=== PATIENT | male | born 1965 | race American Indian/Alaskan Native ===

== ENCOUNTER 2020-05-30 10:56 | Emergency (ER) | payer SELFPAY ==
--- NOTE | 2020-05-30 11:56 | Emergency Department Report ---
ED Abdominal Pain HPI - General Chief Complaint: Abdominal Pain Stated Complaint: VOMINTING Time Seen by Provider: 05/30/20 11:30 Source: patient Mode of arrival: Ambulatory Limitations: No Limitations - History of Present Illness Initial Comments: pt is a 55 yo male who presents to the ED with c/o N/V that began 2 weeks ago. he states he is having approximately 5-6 episodes a day. he states he is having difficulty eating. he states he will eat a few bites and then begin having vomiting. he states he has lost 30 pounds in approximately 2 weeks. he has associated upper abd discomfort and states his urine has appeared darker/hematuria. he states he has been having normal BMs. pt denies any diarrhea, hematochezia, hematoemesis, melena, fever, chills. no pmhx. no allergies to meds. no abdominal surgical hx. - Related Data Previous Rx's Medication Instructions Recorded Last Taken Type Famotidine [Pepcid] 40 mg PO QHS #30 tablet 05/30/20 Unknown Rx Ondansetron [Zofran Odt] 4 mg PO Q8HR PRN #12 tab.rapdis 05/30/20 Unknown Rx Sucralfate [Carafate] 1 gm PO ACHS 7 Days #21 tablet 05/30/20 Unknown Rx ED Review of Systems ROS: Stated complaint: VOMINTING Other details as noted in HPI Comment: All other systems reviewed and negative ED Past Medical Hx - Past Medical History Previous Medical History?: No - Surgical History Past Surgical History?: No - Social History Smoking Status: Never Smoker Substance Use Type: None - Medications Home Medications: Home Medications Medication Instructions Recorded Confirmed Last Taken Type Famotidine [Pepcid] 40 mg PO QHS #30 tablet 05/30/20 Unknown Rx Ondansetron [Zofran Odt] 4 mg PO Q8HR PRN #12 tab.rapdis 05/30/20 Unknown Rx Sucralfate [Carafate] 1 gm PO ACHS 7 Days #21 tablet 05/30/20 Unknown Rx ED Physical Exam - General Limitations: No Limitations General appearance: alert, in no apparent distress - Head Head exam: Present: atraumatic, normocephalic - Eye Eye exam: Present: normal appearance - ENT ENT exam: Present: mucous membranes moist - Respiratory Respiratory exam: Present: normal lung sounds bilaterally. Absent: respiratory distress, wheezes, rales, rhonchi, stridor, chest wall tenderness, accessory muscle use, decreased breath sounds, prolonged expiratory - Cardiovascular Cardiovascular Exam: Present: regular rate, normal rhythm, normal heart sounds. Absent: systolic murmur, diastolic murmur, rubs, gallop - GI/Abdominal GI/Abdominal exam: Present: soft, tenderness (mild generalized), normal bowel sounds. Absent: distended, guarding, rebound, rigid - Neurological Exam Neurological exam: Present: alert, oriented X3 - Psychiatric Psychiatric exam: Present: normal affect, normal mood - Skin Skin exam: Present: warm, dry, intact ED Course Vital Signs 05/30/20 05/30/20 11:58 15:03 Temperature 98.8 F 98 F Pulse Rate 78 87 Respiratory 18 18 Rate Blood Pressure 109/68 130/78 [Right] O2 Sat by Pulse 100 99 Oximetry ED Medical Decision Making - Lab Data Result diagrams: 05/30/20 11:53 05/30/20 11:52 Lab Results 05/30/20 05/30/20 05/30/20 Range/Units 11:42 11:52 11:53 WBC 6.2 (4.5-11.0) K/mm3 RBC 5.73 H (3.65-5.03) M/mm3 Hgb 16.8 H (11.8-15.2) gm/dl Hct 49.8 H (35.5-45.6) % MCV 87 (84-94) fl MCH 29 (28-32) pg MCHC 34 (32-34) % RDW 13.7 (13.2-15.2) % Plt Count 153 (140-440) K/mm3 Lymph % (Auto) 21.5 (13.4-35.0) % [place] % (Auto) 10.5 H (0.0-7.3) % Eos % (Auto) 0.6 (0.0-4.3) % Baso % (Auto) 0.2 (0.0-1.8) % Lymph # (Auto) 1.3 (1.2-5.4) K/mm3 [place] # (Auto) 0.7 (0.0-0.8) K/mm3 Eos # (Auto) 0.0 (0.0-0.4) K/mm3 Baso # (Auto) 0.0 (0.0-0.1) K/mm3 Seg Neutrophils % 67.2 (40.0-70.0) % Seg Neutrophils # 4.2 (1.8-7.7) K/mm3 Sodium 146 H (137-145) mmol/L Potassium 4.2 (3.6-5.0) mmol/L Chloride 104.8 (98-107) mmol/L Carbon Dioxide 34 H (22-30) mmol/L Anion Gap 11 mmol/L BUN 16 (9-20) mg/dL Creatinine 0.9 (0.8-1.3) mg/dL Estimated GFR > 60 ml/min BUN/Creatinine Ratio 18 % Glucose 95 (75-100) mg/dL Calcium 9.5 (8.4-10.2) mg/dL Total Bilirubin 0.40 (0.1-1.2) mg/dL AST 24 (5-40) units/L ALT 27 (7-56) units/L Alkaline Phosphatase 58 (35-129) units/L Total Protein 6.9 (6.3-8.2) g/dL Albumin 4.5 (3.9-5) g/dL Albumin/Globulin Ratio 1.9 % Lipase 19 (13-60) units/L Urine Color [place] (Yellow) Urine Turbidity Slightly-cloudy (Clear) Urine pH 5.0 (5.0-7.0) Ur Specific [place] 1.046 H (1.003-1.030) Urine Protein 100 mg/dl (Negative) mg/dL Urine Glucose (UA) Neg (Negative) mg/dL Urine Ketones Tr (Negative) mg/dL Urine Blood Neg (Negative) Urine Nitrite Neg (Negative) Urine Bilirubin Neg (Negative) Urine Urobilinogen 2.0 (<2.0) mg/dL Ur Leukocyte Esterase Neg (Negative) Urine WBC (Auto) 4.0 (0.0-6.0) /HPF Urine RBC (Auto) 41.0 (0.0-6.0) /HPF U Epithel Cells (Auto) 2.0 (0-13.0) /HPF Urine Mucus 3+ /HPF - Radiology Data Radiology results: report reviewed Ordering Physician: KATHLEEN STRANGE Date of Service: 05/30/20 Procedure(s): CT abdomen pelvis w con Accession Number(s): [id number] cc: KATHLEEN STRANGE CT abdomen pelvis w con INDICATION / CLINICAL INFORMATION: Abdominal pain with nausea and vomiting, weight loss. TECHNIQUE: Axial CT imaging of abdomen and pelvis was obtained with IV contrast. Coronal and sagittal reformatted imaging obtained and reviewed. All CT scans at this location are performed using CT dose reduction for ALARA by means of automated exposure control. COMPARISON: None available. FINDINGS: CT abdomen with IV contrast shows mild heterogeneity of the liver without discrete mass. Liver is of normal size. Spleen, pancreas, right kidney, and adrenal glands are unremarkable. There are 2 simple cysts within the left kidney both measuring approximately 2-3 cm in diameter. A moderate size hiatal hernia is present. Gallbladder is grossly unremarkable. No biliary dilatation. There is a midline supraumbilical abdominal wall hernia. The hernia contains only fat. CT pelvis with contrast does not demonstrate any mass, free fluid, or focal inflammatory change. There is ectasia of the common iliac arteries bilaterally as well as the internal and extrarenal iliac arteries bilaterally. Fluid-filled small bowel loops are present throughout the abdomen and pelvis which I suspect is related to enteritis. This will need to be correlated with clinical presentation and symptoms. Appendix is difficult to confidently identify but I believe it to be within normal limits. There is certainly no secondary evidence for appendicitis. Visualized lung bases are grossly clear. No acute significant osseous abnormality identified. IMPRESSION: 1. Fluid-filled small bowel loops with appearance most suggestive of enteritis. Please correlate with clinical symptoms and presentation. 2. Small to moderate-sized supraumbilical abdominal wall hernia containing only fat. 3. Mild heterogeneity of the liver without discrete mass. This finding is nonspecific. 4. Moderate size hiatal hernia. There is food present within the hiatal hernia. Signer Name: Hiral Frausto MD Signed: 05/30/2020 2:31 PM Workstation Name: [id number] Transcribed By: Dictated By: Hiral Frausto MD Electronically Authenticated By: Hiral Frausto MD Signed Date/Time: 05/30/20 1431 DD/ 142 TD/TT: - Medical Decision Making pt is a 55 yo male who presents to the ED with c/o N/V that began 2 weeks ago. he states he is having approximately 5-6 episodes a day. he states he is having difficulty eating. he states he will eat a few bites and then begin having vomiting. he states he has lost 30 pounds in approximately 2 weeks. he has associated upper abd discomfort and states his urine has appeared darker/hematuria. he states he has been having normal BMs. pt denies any diarrhea, hematochezia, hematoemesis, melena, fever, chills. no pmhx. no allergies to meds. no abdominal surgical hx. vitals are normal. On exam mild generalized abdominal tenderness palpation, no guarding, no rebound, no rigidity, normal bowel sounds, no peritoneal signs. Labs are stable. UA with red blood cells, otherwise stable. CT abdomen pelvis with IV contrast 1. Fluid- filled small bowel loops with appearance most suggestive of enteritis. Please correlate with clinical symptoms and presentation. 2. Small to moderate-sized supraumbilical abdominal wall hernia containing only fat. 3. Mild heterogeneity of the liver without discrete mass. This finding is nonspecific. 4. Moderate size hiatal hernia. There is food present within the hiatal hernia. Patient given medications on the emergency department and symptoms improved and he was able to tolerate p.o. intake without difficulty. Discussed all results with patient and answered questions. Discussed the importance of follow-up with patient. Patient given prescription for Pepcid, Carafate, Zofran. Advised patient please take medication as prescribed. increase your water intake. eat a bland liquid diet and slowly advance your diet as tolerated. follow up with a primary care doctor. follow up with a GI doctor. return to the emergency room for any new or worsening symptoms. Critical care attestation.: If time is entered above; I have spent that time in minutes in the direct care of this critically ill patient, excluding procedure time. ED Disposition Clinical Impression: Enteritis, Hernia Nausea & vomiting Qualifiers: Vomiting type: unspecified Vomiting Intractability: non-intractable Qualified Code(s): R11.2 - Nausea with vomiting, unspecified Abdominal pain Qualifiers: Abdominal location: upper abdomen, unspecified Qualified Code(s): R10.10 - Upper abdominal pain, unspecified Disposition: DC-01 TO HOME OR SELFCARE Is pt being admited?: No Does the pt Need Aspirin: No Condition: Stable Instructions: Viral Gastroenteritis, Adult, Hernia, Adult Additional Instructions: please take medication as prescribed. increase your water intake. eat a bland liquid diet and slowly advance your diet as tolerated. follow up with a primary care doctor. follow up with a GI doctor. return to the emergency room for any new or worsening symptoms. Prescriptions: Famotidine [Pepcid] 40 mg PO QHS #30 tablet Sucralfate [Carafate] 1 gm PO ACHS 7 Days #21 tablet Ondansetron [Zofran Odt] 4 mg PO Q8HR PRN #12 tab.rapdis PRN Reason: nausea/vomiting Referrals: [facility] [Provider Group] - 2-3 Days [facility] [Provider Group] - 2-3 Days DUGLAS BAEZA MD [Staff Physician] - 2-3 Days PRIMARY MD KIMBERLY [Primary Care Provider] - 2-3 Days Time of Disposition: 14:50 Print Language: [email or web address]
[2020-05-30] MEDS ORDERED: SODIUM CHLORIDE 0.9% 1000 ML 1,000 ML IV ONE (12:28)
[2020-05-30] MEDS ORDERED: MORPHINE 4 MG/1 ML INJ IV ONE (12:28)
[2020-05-30] MEDS ORDERED: ONDANSETRON 4 MG/2 ML INJ IV ONE (12:28)
[2020-05-30 12:35] LABS: Bilirubin,Urine NEG (Negative); Blood,Urine NEG (Negative); Color,Urine Amber (Yellow); Mucus,Urine 3+ /HPF
[2020-05-30 12:39] LABS: Basophils % (Auto) 0.2 % (0.0-1.8); Eosinophils % (Auto) 0.6 % (0.0-4.3); Hematocrit 49.8 % (35.5-45.6); Hemoglobin 16.8 gm/dl (11.8-15.2); Lymphocytes # (Auto) 1.3 K/mm3 (1.2-5.4); Lymphocytes % (Auto) 21.5 % (13.4-35.0); Mean Corpuscular HGB Conc 34 % (32-34); Mean Corpuscular Volume 87 fl (84-94); Monocytes # (Auto) 0.7 K/mm3 (0.0-0.8); Monocytes % (Auto) 10.5 % (0.0-7.3); Platelet Count 153 K/mm3 (140-440); Red Blood Count 5.73 M/mm3 (3.65-5.03); Red Cell Distribution Width 13.7 % (13.2-15.2)
[2020-05-30 13:01] LABS: Alanine Aminotransferase 27 units/L (7-56); Albumin 4.5 g/dL (3.9-5); BUN/Creatinine Ratio 18; Blood Urea Nitrogen 16 mg/dL (9-20); Calcium 9.5 mg/dL (8.4-10.2); Hemolysis Index 30
--- NOTE | 2020-05-30 14:35 | Cat Scan Report ---
CT abdomen pelvis w con INDICATION / CLINICAL INFORMATION: Abdominal pain with nausea and vomiting, weight loss. TECHNIQUE: Axial CT imaging of abdomen and pelvis was obtained with IV contrast. Coronal and sagittal reformatte d imaging obtained and reviewed. All CT scans at this location are performed using CT dose reduction for ALARA by means of automated exposure control. COMPARISON: None available. FINDINGS: CT abdomen with IV contrast shows mild heterogeneity of the liver without discrete mass. Liver is of normal size. Spleen, pancreas, right kidney, and adrenal glands are unremarkable. There are 2 simple cysts within the left kidney both measuring approximately 2-3 cm in diameter. A moderate size hiatal hernia is present. Gallbladder is grossly unremarkable. No biliary dilatation. There is a midline supraumbilical abdominal wall hernia. The hernia contains only fat. CT pelvis with contrast does not demonstrate any mass, free fluid, or focal inflammatory change. Ther e is ectasia of the common iliac arteries bilaterally as well as the internal and extrarenal iliac ar teries bilaterally. Fluid-filled small bowel loops are present throughout the abdomen and pelvis which I suspect is relat ed to enteritis. This will need to be correlated with clinical presentation and symptoms. Appendix is difficult to confidently identify but I believe it to be within normal limits. There is certainly no secondary evidence for appendicitis. Visualized lung bases are grossly clear. No acute significant osseous abnormality identified. IMPRESSION: 1. Fluid-filled small bowel loops with appearance most suggestive of enteritis. Please correlate with clinical symptoms and presentation. 2. Small to moderate-sized supraumbilical abdominal wall hernia containing only fat. 3. Mild heterogeneity of the liver without discrete mass. This finding is nonspecific. 4. Moderate size hiatal hernia. There is food present within the hiatal hernia. Signer Name: Hiral Frausto MD Signed: 05/30/2020 2:31 PM Workstation Name: [id number]
[2020-05-30 15:04] VITALS: BP 130/78
== END 2020-05-30 15:03 | disposition home or self-care (01) ==
LOC: ED 10:56
DX: K52.9 Noninfective gastroenteritis and colitis, unspecified (principal); K46.9 Unspecified abdominal hernia without obstruction or gangrene; R10.10 Upper abdominal pain, unspecified; R11.2 Nausea with vomiting, unspecified; Z79.899 Other long term (current) drug therapy
CPT/HCPCS: 36415; 74177; 80053; 81001; 83690; 85025; 96361; 96374; 96375; 99284; J2270; J2405; J7030; Q9967